=== PATIENT | male | born 1975 | race Caucasian/White ===

== ENCOUNTER 2023-12-13 16:24 | Outpatient (REF) | payer BC, SELFPAY | END 2023-12-13 16:25 | disposition home or self-care (01) | LOC: HO.SH 16:24 | PROVIDERS: Visit Provider Nurse Practitioner Family | DX: Z01.118 Encounter for examination of ears and hearing with other abnormal findings (principal); H90.3 Sensorineural hearing loss, bilateral | CPT/HCPCS: 92557 ==